=== PATIENT | female | born 1985 | race Caucasian/White ===

== ENCOUNTER 2019-03-11 16:36 | Emergency (ER) | payer MEDICAID ==
[~2019-03-11] VITALS: Ht 160 cm; Wt 45.4 kg
[~2019-03-11 16:36] MED LIST: CLON0.5T3 PO; LVT.025T PO; PNT40TEC PO; PREN1TAB39 PO; SERT100T PO; SULF-222 PO
[2019-03-11 17:39] LABS: BILIRUBIN,URINE NEGATIVE (NEGATIVE); CLARITY,URINE CLEAR; COLOR,URINE YELLOW; GLUCOSE, URINE (UA) NEGATIVE (NEGATIVE); KETONES,URINE NEGATIVE (NEGATIVE); LEUKOCYTE ESTERASE ,URINE 3+ (NEGATIVE); NITRITE,URINE NEGATIVE (NEGATIVE); PH,URINE 6 (5-9); PROTEIN,URINE 1+ (NEGATIVE); UROBILINOGEN,URINE 1 MG/DL (NORMAL)
[2019-03-11 17:45] LABS: BASOPHILS # (AUTO) 0.1 10^3/uL (0.0-0.1); BASOPHILS % (AUTO) 1 % (0-10); EOSINOPHILS # (AUTO) 0.3 10^3/uL (0.0-0.3); EOSINOPHILS % (AUTO) 2 % (0-10); HEMATOCRIT 45 % (35-52); HEMOGLOBIN 15.7 G/DL (11.5-16.0); LYMPHOCYTES # (AUTO) 4.8 X 10^3 (1.0-4.0); LYMPHOCYTES % (AUTO) 45 % (12-44); MEAN CORPUSCULAR HEMOGLOBIN 33 PG (25-34); MEAN CORPUSCULAR HGB CONC 35 G/DL (32-36); MEAN CORPUSCULAR VOLUME 94 FL (80-99); MEAN PLATELET VOLUME 8.8 FL (7.4-10.4); MONOCYTES # (AUTO) 1.1 X 10^3 (0.0-1.0); MONOCYTES % (AUTO) 10 % (0-12); NEUTROPHILS # (AUTO) 4.5 X 10^3 (1.8-7.8); NEUTROPHILS % (AUTO) 42 % (42-75); PLATELET COUNT 482 10^3/uL (130-400); RED CELL DISTRIBUTION WIDTH 12.3 % (10.0-14.5); WHITE BLOOD COUNT 10.7 10^3/uL (4.3-11.0)
--- NOTE | 2019-03-11 17:47 | ED Abdominal Pain ---
General Chief Complaint: Abdominal/GI Problems Stated Complaint: ABD PAIN, DISCHARGE Nursing Triage Note: Patient ambulatory to ER triage room with complaint of upper and lower abdominal pain that started 4 days ago. Patient also complaining of vaginal bleeding. Patient is also complaining of diarrhea and vomiting. Sepsis Screen: No Definite Risk Source of Information: Patient Exam Limitations: No Limitations History of Present Illness Date Seen by Provider: Mar 11, 2019 Time Seen by Provider: 17:46 Initial Comments To ER with reports of upper and lower abdominal pain for the past 4 days, no nausea or vomiting. No fevers or chills. No bowel changes. She's also had some light intermittent vaginal bleeding starting today, this is not terribly concerning to her because her menstrual cycles are irregular. Her last normal menstrual cycle was about a week ago. Her pain is cramping in nature and completely gone at the current time Timing/Duration: 3-4 Days Severity/Quality: Cramping Radiation: No Radiation Activities at Onset: None Associated Symptoms: Denies Symptoms Allergies and Home Medications Allergies Coded Allergies: No Known Drug Allergies (Verified Allergy, Unknown, 01/09/08) Home Medications Clonazepam 0.5 Mg Tablet, 1 EACH PO BID PRN, (Reported) NEEDED FOR ANXIETY Levothyroxine Sodium 25 Mcg Tablet, 1 EACH PO DAILY, (Reported) Pantoprazole Sodium 40 Mg Tablet.dr, 1 TAB PO DAILY, (Reported) Vits W-Ca,Fe,Fa(<1MG) 1 Each Tablet, 1 EACH PO DAILY, (Reported) Sertraline Hcl 100 Mg Tablet, 100 MG PO DAILY, (Reported) Trimethoprim/Sulfamethoxazole 1 Ea Tablet, 1 EA PO BID, (Reported) Patient Home Medication List Home Medication List Reviewed: Yes Review of Systems Review of Systems Constitutional: see HPI EENTM: No Symptoms Reported Respiratory: No Symptoms Reported Cardiovascular: No Symptoms Reported Gastrointestinal: See HPI Genitourinary: No Symptoms Reported Musculoskeletal: no symptoms reported Skin: no symptoms reported Psychiatric/Neurological: No Symptoms Reported Endocrine: No Symptoms Reported Hematologic/Lymphatic: No Symptoms Reported Past Kjbroku-Svedyv-Yictbt Hx Patient Social History Alcohol Use: Rarely Uses Recreational Drug Use: No Smoking Status: Current Everyday Smoker Recent Foreign Travel: No Contact w/Someone Who Travel: No Recent Infectious Disease Expo: No Recent Hopitalizations: Yes (childbirth) Immunizations Up To Date Date of Influenza Vaccine: Feb 26, 2012 Past Medical History Surgeries: No Respiratory: No Cardiac: No Neurological: No Reproductive Disorders: No Genitourinary: No Gastrointestinal: No Musculoskeletal: No Endocrine: No Cancer: No Psychosocial: Yes Anxiety, Depression Integumentary: No Blood Disorders: No Physical Exam Vital Signs Vital Signs - First Documented 03/11/19 17:14 Temp 36.3 Pulse 89 Resp 20 B/P (MAP) 127/86 (100) Pulse Ox 96 O2 Delivery Room Air Capillary Refill : Less Than 3 Seconds Height/Weight/BMI Height: '" Weight: 130lbs. 0.4oz. 58.607534tl; 17.00 BMI Method: General Appearance: WD/WN, no apparent distress Respiratory: no respiratory distress, no accessory muscle use Cardiovascular: regular rate, rhythm, no murmur Gastrointestinal: normal bowel sounds, non tender, soft; No tenderness Neurologic/Psychiatric: alert, normal mood/affect, oriented x 3 Skin: normal color, warm/dry Progress/Results/Core Measures Results/Orders Lab Results Laboratory Tests Test 03/11/19 17:28 03/11/19 17:30 Range/Units White Blood Count 10.7 4.3-11.0 10^3/uL Red Blood Count 4.83 4.35-5.85 10^6/uL Hemoglobin 15.7 11.5-16.0 G/DL Hematocrit 45 35-52 % Mean Corpuscular Volume 94 80-99 FL Mean Corpuscular Hemoglobin 33 25-34 PG Mean Corpuscular Hemoglobin Concent 35 32-36 G/DL Red Cell Distribution Width 12.3 10.0-14.5 % Platelet Count 482 H 130-400 10^3/uL Mean Platelet Volume 8.8 7.4-10.4 FL Neutrophils (%) (Auto) 42 42-75 % Lymphocytes (%) (Auto) 45 H 12-44 % Monocytes (%) (Auto) 10 0-12 % Eosinophils (%) (Auto) 2 0-10 % Basophils (%) (Auto) 1 0-10 % Neutrophils # (Auto) 4.5 1.8-7.8 X 10^3 Lymphocytes # (Auto) 4.8 H 1.0-4.0 X 10^3 Monocytes # (Auto) 1.1 H 0.0-1.0 X 10^3 Eosinophils # (Auto) 0.3 0.0-0.3 10^3/uL Basophils # (Auto) 0.1 0.0-0.1 10^3/uL Sodium Level 139 135-145 MMOL/L Potassium Level 3.9 3.6-5.0 MMOL/L Chloride Level 104 98-107 MMOL/L Carbon Dioxide Level 28 21-32 MMOL/L Anion Gap 7 5-14 MMOL/L Blood Urea Nitrogen 8 7-18 MG/DL Creatinine 0.76 0.60-1.30 MG/DL Estimat Glomerular Filtration Rate > 60 BUN/Creatinine Ratio 11 Glucose Level 103 70-105 MG/DL Calcium Level 9.5 8.5-10.1 MG/DL Corrected Calcium 9.1 8.5-10.1 MG/DL Total Bilirubin 0.3 0.1-1.0 MG/DL Aspartate Amino Transf (AST/SGOT) 19 5-34 U/L Alanine Aminotransferase (ALT/SGPT) 23 0-55 U/L Alkaline Phosphatase 67 40-136 U/L Total Protein 7.7 6.4-8.2 GM/DL Albumin 4.5 3.2-4.5 GM/DL Lipase 30 8-78 U/L Serum Test, Qualitative NEGATIVE NEGATIVE Urine Color YELLOW Urine Clarity CLEAR Urine pH 6 5-9 Urine Specific [place] 1.015 L 1.016-1.022 Urine Protein 1+ H NEGATIVE Urine Glucose (UA) NEGATIVE NEGATIVE Urine Ketones NEGATIVE NEGATIVE Urine Nitrite NEGATIVE NEGATIVE Urine Bilirubin NEGATIVE NEGATIVE Urine Urobilinogen 1 NORMAL MG/DL Urine Leukocyte Esterase 3+ H NEGATIVE Urine RBC (Auto) 5+ H NEGATIVE Urine RBC NONE /HPF Urine WBC 10-25 H /HPF Urine Squamous Epithelial Cells 10-25 H /HPF Urine Crystals NONE /LPF Urine Amorphous Sediment FEW ANNELISE URATES H /LPF Urine Bacteria FEW H /HPF Urine Casts NONE /LPF Urine Mucus NEGATIVE /LPF Urine Culture Indicated YES My Orders Orders - BENEDICTO HILL 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 Decision time for Depature: 18:01 Referrals: NO,LOCAL PHYSICIAN (PCP) Primary Care Physician Patient Instructions: Urinary Tract Infection, Adult (DC) Add. Discharge Instructions: Return to ER for any concerns 2. Antibiotics as directed 3. Follow-up with your doctor next week All discharge instructions reviewed with patient and/or family. Voiced understanding. Scripts Cefuroxime Axetil (Cefuroxime) 250 Mg Tablet 250 MG PO BID, #10 TAB Prov: BENEDICTO HILL APRN 03/11/19 Work/School Note: Work Release Form Date Seen in the Emergency Department: Mar 11, 2019 Return to Work: Mar 12, 2019 BENEDICTO HILL APRN Mar 11, 2019 17:47
[2019-03-11 17:54] LABS: AMORPHOUS SEDIMENT,UR FEW AMOR URATES /LPF; BACTERIA,URINE FEW /HPF
[2019-03-11 17:56] LABS: ALANINE AMINOTRANSFERASE 23 U/L (0-55); ALBUMIN 4.5 GM/DL (3.2-4.5); ALKALINE PHOSPHATASE 67 U/L (40-136); BILIRUBIN,TOTAL 0.3 MG/DL (0.1-1.0); BUN/CREATININE RATIO 11; CALCIUM 9.5 MG/DL (8.5-10.1); CARBON DIOXIDE 28 MMOL/L (21-32); CHLORIDE 104 MMOL/L (98-107); CREATININE SERUM 0.76 MG/DL (0.60-1.30); GFR ESTIMATED > 60; GLUCOSE 103 MG/DL (70-105); LIPASE 30 U/L (8-78); POTASSIUM 3.9 MMOL/L (3.6-5.0); SODIUM 139 MMOL/L (135-145); TOTAL PROTEIN 7.7 GM/DL (6.4-8.2)
[2019-03-11] MEDS ORDERED: CEFU250T80 PO (18:27)
[2019-03-11] MEDS ORDERED: cefTRIAXone FOR IV USE 1,000 MG in WATER (STERILE) FOR INJECTION 10 ML IV ONE (18:45)
--- NOTE | 2019-03-11 18:55 | NUR ---
CARE HANDED OVER TO LEOLA HELTON.
[2019-03-11 19:09] VITALS: BP 140/77
== END 2019-03-11 19:10 | disposition home or self-care (01) ==
LOC: EDUNIT# 16:36 → ER 16:39
DX: N39.0 Urinary tract infection, site not specified (principal); F41.9 Anxiety disorder, unspecified; F32.9 Major depressive disorder, single episode, unspecified; F17.200 Nicotine dependence, unspecified, uncomplicated
CPT/HCPCS: 36415; 80053; 81000; 83690; 84703; 85025; 87088

== ENCOUNTER 2019-05-19 09:19 | Outpatient (CLI) | payer MEDICAID ==
[~2019-05-19] VITALS: Ht 165 cm; Wt 46.8 kg
[~2019-05-19 09:19] MED LIST changes: +CEFU250T80 PO
[2019-05-19] MEDS ORDERED: NORG1TAB14 PO (09:28)
[2019-05-19] MEDS ORDERED: FEXO180T84 PO (09:28)
[2019-05-19 09:30] VITALS: BP 122/77
[2019-05-19 09:57] LABS: BASOPHILS # (AUTO) 0.1 10^3/uL (0.0-0.1); BASOPHILS % (AUTO) 1 % (0-10); EOSINOPHILS # (AUTO) 0.2 10^3/uL (0.0-0.3); EOSINOPHILS % (AUTO) 2 % (0-10); HEMATOCRIT 42 % (35-52); HEMOGLOBIN 14.3 G/DL (11.5-16.0); LYMPHOCYTES % (AUTO) 30 % (12-44); MEAN CORPUSCULAR HEMOGLOBIN 33 PG (25-34); MEAN CORPUSCULAR HGB CONC 34 G/DL (32-36); MEAN CORPUSCULAR VOLUME 95 FL (80-99); MEAN PLATELET VOLUME 8.9 FL (7.4-10.4); MONOCYTES # (AUTO) 0.9 X 10^3 (0.0-1.0); MONOCYTES % (AUTO) 7 % (0-12); NEUTROPHILS % (AUTO) 61 % (42-75); PLATELET COUNT 399 10^3/uL (130-400); RED CELL DISTRIBUTION WIDTH 11.7 % (10.0-14.5); WHITE BLOOD COUNT 13.3 10^3/uL (4.3-11.0)
--- NOTE | 2019-05-19 10:13 | Diagnostic Imaging Report ---
INDICATION: Preop. TIME OF EXAM: 10:03 AM COMPARISON: No prior studies are available for comparison. FINDINGS: The heart size is normal. The pulmonary vascularity is unremarkable. The lungs are clear. No infiltrate, effusion or pneumothorax is detected. IMPRESSION: No acute cardiopulmonary process is detected. Dictated by: Dictated on workstation # [id number]
== END 2019-05-19 12:30 | disposition home or self-care (01) ==
LOC: PREOP 09:19
PROVIDERS: ATTEND Obstetrics & Gynecology
DX: Z01.818 Encounter for other preprocedural examination (principal); N92.0 Excessive and frequent menstruation with regular cycle; N94.6 Dysmenorrhea, unspecified
CPT/HCPCS: 36415; 71046; 85025; 86850; 86900; 86901; 87081

== ENCOUNTER 2019-06-04 22:40 | Emergency (ER) | payer MEDICAID ==
[~2019-06-04] VITALS: Ht 157 cm; Wt 47.0 kg
[~2019-06-04 22:40] MED LIST changes: +DOXY100T2 PO; +FEXO180T84 PO; +IBUP-1780 PO; +NORG1TAB14 PO; +OXYC1TAB87 PO
[2019-06-04] MEDS ORDERED: SERTRALINE 50 MG (ZOLOFT) TABLET ONE (23:03)
[2019-06-04 23:13] VITALS: BP 121/61
[2019-06-05] MEDS ORDERED: SERTRALINE 50 MG (ZOLOFT) TABLET PO ONE (00:15)
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
== END 2019-06-04 23:13 | disposition home or self-care (01) ==
LOC: ER 22:40 → EDUNIT# 22:40 → ER 23:13
DX: F41.9 Anxiety disorder, unspecified (principal); F32.9 Major depressive disorder, single episode, unspecified; Z77.22 Contact with and (suspected) exposure to environmental tobacco smoke (acute) (chronic); Z98.51 Tubal ligation status
CPT/HCPCS: 99283

== ENCOUNTER 2020-12-26 14:24 | Emergency (ER) | payer MEDICAID ==
[~2020-12-26] VITALS: Ht 160 cm; Wt 45.3 kg
--- NOTE | 2020-12-26 14:32 | ED General ---
General Stated Complaint: NAUSEA/BODYACHES/FEVER/HEADACHE Source of Information: Patient Exam Limitations: No Limitations History of Present Illness Date Seen by Provider: Dec 26, 2020 Time Seen by Provider: 14:31 Initial Comments Patient is a 35-year-old female who presents to the emergency department with onset today of nausea, body aches, fever and headache. Patient tells me that she is Covid vaccinated having received the [employer] vaccine on October 24 of this year. She states she is not short of breath nor does she have a cough. No real congestion. She is a smoker. She has a history of "allergies". She denies abdominal pain, nausea, vomiting or diarrhea. No genitourinary complaints. She does not really take any daily prescribed medications. 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 All other review of systems reviewed and negative except as stated. Timing/Duration: 12-24 Hours Severity: Mild Associated Systoms: Fever/Chills, Malaise, Nausea/Vomiting Allergies and Home Medications Allergies Coded Allergies: No Known Drug Allergies (Unverified , 05/19/19) Home Medications Doxycycline Hyclate 100 Mg Tablet, 100 MG PO Q12HR Prescribed by: ROMINA TURNER on 05/26/19 1055 Fexofenadine HCl 180 Mg Tablet, 180 MG PO DAILY, (Reported) Ibuprofen 800 Mg Tablet, 800 MG PO Q8H PRN for PAIN-MILD Prescribed by: ROMINA TURNER on 05/26/19 1055 Norgestimate-Ethinyl Estradiol 1 Each Tablet, 1 EACH PO DAILY, (Reported) Ondansetron 4 Mg Tab.rapdis, 4 MG PO Q8H PRN for nausea Prescribed by: RICHY MARIN on 12/26/20 1643 Oxycodone HCl/Acetaminophen 1 Each Tablet, 1 TAB PO Q6H Prescribed by: ROMINA TURNER on 05/26/19 1055 Patient Home Medication List Home Medication List Reviewed: Yes Review of Systems Review of Systems Constitutional: see HPI, fever EENTM: no symptoms reported; No throat pain Respiratory: no symptoms reported Cardiovascular: no symptoms reported Gastrointestinal: nausea Genitourinary: no symptoms reported : No Musculoskeletal: joint pain Skin: no symptoms reported Psychiatric/Neurological: Headache All Other Systems Reviewed Negative Unless Noted: Yes Past Ategivz-Aiveol-Cupdmr Hx Seasonal Allergies Seasonal Allergies: Yes Past Medical History Surgeries: Yes (HERNIA REPAIR CHILD) Tubal Ligation Respiratory: No Cardiac: No Neurological: No Reproductive Disorders: No Female Reproductive Disorders: Menstrual Problems 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 0.4oz. 58.153497rq; 19.00 BMI Method: General Appearance: No Apparent Distress, WD/WN, Thin Eyes: Bilateral Eye Normal Inspection HEENT: PERRL/EOMI Neck: Full Range of Motion, Normal Inspection, Non Tender, Supple Respiratory: Lungs Clear, Normal Breath Sounds, No Accessory Muscle Use, No Respiratory Distress Cardiovascular: Regular Rate, Rhythm (Heart rate upper 90s) Gastrointestinal: Non Tender, Soft Extremity: Normal Capillary Refill, Normal Inspection, Normal Range of Motion, Non Tender, No Calf Tenderness Neurologic/Psychiatric: Alert, Oriented x3, No Motor/Sensory Deficits, Normal Mood/Affect Skin: Normal Color, Warm/Dry Progress/Results/Core Measures Suspected Sepsis SIRS Temperature: Pulse: Respiratory Rate: Blood Pressure / Mean: Results/Orders Lab Results Laboratory Tests Test 12/26/20 14:35 Range/Units SARS-CoV-2 RNA (RT-PCR) Not Detected Not Detecte My Orders Orders - RICHY MARIN MD Covid 19 Inhouse Test (12/26/20 14:37) Vital Signs/I&O 12/26/20 12/26/20 14:30 14:30 Temp 36.7 Pulse 92 Resp 16 B/P (MAP) 98/71 (80) Pulse Ox 99 O2 Delivery Room Air Room Air Capillary Refill : Departure Impression Primary Impression: Viral syndrome Disposition: 01 HOME, SELF-CARE Condition: Stable Departure-Patient Inst. Decision time for Depature: 16:42 Referrals: [facility] (PCP/Family) Primary Care Physician Patient Instructions: VIRAL SYNDROME Add. Discharge Instructions: Continue to drink plenty of fluids at home to stay well-hydrated. I have sent a prescription for Zofran, and nausea medication to your pharmacy. Alternate Tylenol and ibuprofen as needed for body aches. If you have worsening or persistent symptoms you may need to be reCovid tested in 24 to 48 hours. Come back to the emergency room for any worsening symptoms especially with shortness of breath, persistent cough or other emergent concerning symptoms. Scripts Ondansetron (Ondansetron Odt) 4 Mg Tab.rapdis 4 MG PO Q8H PRN for nausea, #20 TAB Prov: RICHY MARIN MD 12/26/20 Work/School Note: Work Release Form Date Seen in the Emergency Department: Dec 26, 2020 Return to Work: Dec 28, 2020 RICHY MARIN MD Dec 26, 2020 14:32
[2020-12-26] MEDS ORDERED: ONDA4TAB11 PO (16:43)
[2020-12-26 16:52] VITALS: BP 105/72
== END 2020-12-26 16:54 | disposition home or self-care (01) ==
LOC: EDUNIT# 14:24 → ER 14:26
DX: B34.9 Viral infection, unspecified (principal); Z20.822 Contact with and (suspected) exposure to COVID-19
CPT/HCPCS: 87636; 99282